=== PATIENT | female | born 1980 ===

== ENCOUNTER 2018-04-12 17:04 | Observation (INO) | payer OTHER ==
[2018-04-12 17:24] VITALS: BMI 45.1
[2018-04-12 17:36] LABS: BASO # 0.1 K/uL (0.0-0.2); BASO % 0.9 % (0.0-2.0); EOS # 0.1 K/uL (0.0-0.7); EOS % 1.3 % (0.0-4.0); LYMPH # 2.4 K/uL (1.0-4.3); LYMPH % 35.3 % (20.0-40.0); MEAN CORPUSCULAR HEMOGLOBIN 27.3 pg (27.0-31.0); MEAN CORPUSCULAR HGB CONC 32.5 g/dL (33.0-37.0); MEAN PLATELET VOLUME 7.7 fL (7.2-11.7); MONO # 0.3 K/uL (0.0-0.8); MONO % 4.2 % (0.0-10.0); NEUT % 58.3 % (50.0-75.0); NRBC % 0.1 % (0.0-2.0); RBC 4.76 Mil/uL (3.80-5.20); RED CELL DISTRIBUTION WIDTH 13.7 % (11.5-14.5); WHITE BLOOD COUNT 6.9 K/uL (4.8-10.8)
[2018-04-12 17:37] LABS: MEAN CELL VOLUME 83.9 fL (81.0-99.0)
[2018-04-12] MEDS ORDERED: Iodixanol 320 MG/ML 100 ML BOTTLE IV ONE (17:39)
--- NOTE | 2018-04-12 17:40 | CT ---
Date of service: 04/12/2018 PROCEDURE: CT HEAD WITHOUT CONTRAST. HISTORY: VISION LOSS/SLURRED SPEECH/HEADACHE COMPARISON: None available. TECHNIQUE: Axial computed tomography images were obtained through the head/brain without intravenous contrast. Radiation dose: Total exam DLP = 1112.36 mGy-cm. This CT exam was performed using one or more of the following dose reduction techniques: Automated exposure control, adjustment of the mA and/or kV according to patient size, and/or use of iterative reconstruction technique. FINDINGS: HEMORRHAGE: No intracranial hemorrhage. BRAIN: No mass effect or edema. No atrophy or chronic microvascular ischemic changes. VENTRICLES: Unremarkable. No hydrocephalus. CALVARIUM: Unremarkable. PARANASAL SINUSES: Unremarkable as visualized. No significant inflammatory changes. MASTOID AIR CELLS: Unremarkable as visualized. No inflammatory changes. OTHER FINDINGS: Trace left frontal soft tissue swelling. IMPRESSION: Trace left frontal soft tissue swelling. No calvarial fracture. No acute intracranial pathology or hemorrhage. Findings given to Dr. Jackson by Dr. Fagan at 5:35 p.m. on 04/12/2018.
[2018-04-12 17:43] LABS: PROTHROMBIN TIME 11.1 SECONDS (9.7-12.2)
[2018-04-12 17:46] LABS: ALB/GLOB RATIO 1.6 (1.0-2.1); ALBUMIN 4.7 g/dL (3.5-5.0); ALT/SGPT 16 U/L (9-52); AST/SGOT 17 U/L (14-36); BLOOD UREA NITROGEN 11 mg/dL (7-17); CALCIUM 8.6 mg/dl (8.6-10.4); GFR NON-AFRICAN AMERICAN > 60; HDL CHOLESTEROL 46 mg/dL (30-70)
--- NOTE | 2018-04-12 17:52 | C.PDOC ---
History Of Present Illness 37 y/o female presents to the ED complaining of a headache and right eye blurry vision onset today at 3pm. No known fevers or other complaints. 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 She otherwise denies any SOB, dizziness, palpitations, unilateral weakness, numbness, facial droop, or slurred speech. Time Seen by Provider: 04/12/18 17:22 Chief Complaint (Nursing): Headache History Per: Patient History/Exam Limitations: no limitations Onset/Duration Of Symptoms: Hrs Current Symptoms Are (Timing): Still Present Past Medical History Reviewed: Historical Data, Nursing Documentation, Vital Signs Vital Signs: Last Vital Signs Temp 98.7 F 04/12/18 17:21 Pulse 71 04/12/18 17:21 Resp 18 04/12/18 17:21 BP 155/92 H 04/12/18 17:21 Pulse Ox 98 04/12/18 17:21 - Medical History Other PMH: Mcintosh's Palsy Surgical History: Family History: States: Unknown Family Hx - Social History Hx Alcohol Use: Yes Hx Substance Use: No - Immunization History Hx Tetanus Toxoid Vaccination: No Hx Influenza Vaccination: No Hx Pneumococcal Vaccination: No Review Of Systems Except As Marked, All Systems Reviewed And Found Negative. Constitutional: Negative for: Fever Eyes: Positive for: Vision Change (blurry vision right eye) Cardiovascular: Negative for: Chest Pain, Palpitations Respiratory: Negative for: Shortness of Breath Gastrointestinal: Negative for: Nausea, Vomiting Neurological: Positive for: Headache. Negative for: Weakness, Numbness, Change in Speech, Altered Mental Status, Other (facial droop) Physical Exam - Physical Exam Appears: Non-toxic, No Acute Distress Skin: Warm, Dry Head: Atraumatic, Normacephalic Eye(s): bilateral: Normal Inspection, PERRL, EOMI Oral Mucosa: Moist Neck: Normal ROM, Supple Chest: Symmetrical Cardiovascular: Rhythm Regular, No Murmur Respiratory: Normal Breath Sounds, No Accessory Muscle Use Gastrointestinal/Abdominal: Soft, No Tenderness, No Distention Extremity: Bilateral: Atraumatic, Normal Color And Temperature, Normal ROM (x 4) Pulses: Left Dorsalis Pedis: Normal, Right Dorsalis Pedis: Normal Neurological/Psych: Oriented x3, Normal Speech, Normal Cognition, Normal Cranial Nerves (2-12 intact), No Cerebellar Signs, Normal Motor, Normal Sensation, Other (No pronator drift) Other Neurological Findings: No Facial Palsy Extremity: Right: No Drift, Left: No Drift, Upper: No Drift, Lower: No Drift ED Course And Treatment - Laboratory Results Result Diagrams: 04/12/18 17:29 04/12/18 17:29 Lab Results: PT 11.1 SECONDS (9.7-12.2) 04/12/18 17:29 INR 1.0 04/12/18 17:29 APTT 35 SECONDS (21-34) H 04/12/18 17:29 Total Bilirubin 0.3 mg/dL (0.2-1.3) 04/12/18 17:29 AST 17 U/L (14-36) 04/12/18 17: ALT 16 U/L (9-52) 04/12/18 17: Alkaline Phosphatase 55 U/L (38-126) 04/12/18 17:29 Total Protein 7.6 g/dL (6.3-8.3) 04/12/18 17: Albumin 4.7 g/dL (3.5-5.0) 04/12/18 17: Globulin 2.9 gm/dL (2.2-3.9) 04/12/18 17: Albumin/Globulin Ratio 1.6 (1.0-2.1) 04/12/18 17:29 O2 Sat by Pulse Oximetry: 98 (RA) Pulse Ox Interpretation: Normal - CT Scan/US CT Head Other Rad Studies (CT/US): Read By Radiologist, Radiology Report Reviewed CT/US Interpretation: Accession No. : [id number]. Patient Name / ID : DELFINA HAMMER / [id number]. Exam Date : 04/12/2018 17:28:50 ( Approved ). Study Comment : Sex / Age : F / 37Y. Creator : Trupti Zuniga. Dictator : Mynor Woo MD. Linotype Machinist Apprentice : Systems Trainer : Mynor Woo MD. Approver2 : Report Date : 04/12/2018 17:33:21. My Comment : . Date of service: 04/12/2018. PROCEDURE: CT HEAD WITHOUT CONTRAST. HISTORY: VISION LOSS/SLURRED SPEECH/HEADACHE. COMPARISON: None available. TECHNIQUE: Axial computed tomography images were obtained through the head/brain without intravenous contrast. Radiation dose: Total exam DLP = 1112.36 mGy-cm. This CT exam was performed using one or more of the following dose reduction techniques: Automated exposure control, adjustment of the mA and/or kV according to patient size, and/or use of iterative reconstruction technique. FINDINGS: HEMORRHAGE: No intracranial hemorrhage. BRAIN: No mass effect or edema. No atrophy or chronic microvascular ischemic changes. VENTRICLES: Unremarkable. No hydrocephalus. CALVARIUM: Unremarkable. PARANASAL SINUSES: Unremarkable as visualized. No significant inflammatory changes. MASTOID AIR CELLS: Unremarkable as visualized. No inflammatory changes. OTHER FINDINGS: Trace left frontal soft tissue swelling. IMPRESSION: Trace left frontal soft tissue swelling. No calvarial fracture. No acute intracranial pathology or hemorrhage. Findings given to Dr. Jackson by Dr. Fagan at 5:35 p.m. on 04/12/2018. CTA Head/Neck Other Rad Studies (CT/US): Read By Radiologist, Radiology Report Reviewed CT/US Interpretation: Accession No. : [id number]. Patient Name / ID : DELFINA HAMMER / [id number]. Exam Date : 04/12/2018 17:37:43 ( Approved ). Study Comment : Sex / Age : F / 37Y. Creator : Trupti Zuniga. Dictator : Karl Matthew MD. Linotype Machinist Apprentice : Systems Trainer : Karl Matthew MD. Ap prover2 : Report Date : 04/12/2018 17:53:22. My Comment : . Date of service: 04/12/2018. PROCEDURE: CT Angiography of the Brain. HISTORY: right eye blurred vision. COMPARISON: None available. TECHNIQUE: CT angiography of the intracranial arteries was performed. Coronal and sagittal maximum intensity projection reformated images were generated. Radiation dose: Total exam DLP = 547.08 mGy- cm. This CT exam was performed using one or more of the following dose reduction techniques: Automated exposure control, adjustment of the mA and/or kV according to patient size, and/or use of iterative reconstruction technique. FINDINGS: RIGHT CAROTID ARTERIES: Common Carotid Artery: Normal. Carotid Bifurcation: Normal. Internal Carotid Artery:The right internal carotid terminus is small in size. External Carotid Artery (proximal branches): Normal. LEFT CAROTID ARTERIES: Common Carotid Artery: Left common carotid artery is small in size P. Carotid Bifurcation: The left carotid bifurcation is also small in size. Internal Carotid Artery:Left internal carotid artery is not visualized likely occluded from its origin. External Carotid Artery (proximal branches): Normal. VERTEBRAL ARTERIES: Right Vertebral Artery: Normal. Left Vertebral Artery: Normal. INTERNAL CEREBRAL ARTERIES: Left internal carotid artery is not visualized. The right internal carotid terminus is small in size. ANTERIOR CEREBRAL ARTERIES: Both anterior cerebral arteries are small in size with blood supply for both anterior cerebral artery comes from right anterior communicated artery. The left A1 is not visualized. MIDDLE CEREBRAL ARTERIES: There is reconstitution of the left middle cerebral artery via left posterior communicated artery. The M1 and M2 segments of the left middle cerebral artery are small in size. The M1 and M2 segments of the right middle cerebral artery are also small in size. POSTERIOR CIRCULATION: Basilar Artery: Unremarkable. Distal Vertebral Arteries: Unremarkable. Posterior Cerebral Arteries: Unremarkable. Posterior Inferior Cerebellar Arteries: Unremarkable. ANEURYSM/ VASCULAR MALFORMATIONS: None. OTHER FINDINGS: None. IMPRESSION: The left internal carotid artery is not visualized from its origin ( complete occlusion of the left internal carotid artery ). Small size right internal carotid artery terminus. Reconstitution of small size left middle cerebral artery from relatively prominent size left posterior communicated artery. The left A1 is not visualized. The M1 and M2 segments of the right middle cerebral arteries are small in size. The above findings were reported to and discussed with referring emergency room physician Dr. Jackson on 04/12/2018 at 6:05 p.m. NIHSS Stroke Scale - Date/Time Evaluation Performed Date Performed: 04/12/18 Time Performed: 17:21 When Was NIHSS Performed: Baseline - How Severe is the [place] Level of Consciousness: 0=Alert LOC to Questions: 0=Both comments correct LOC to commands: 0=Obeys both correctly Best Gaze: 0=Normal Visual: 0=No visual loss Facial: 0=Normal Motor Arm - Left: 0=No drift Motor Arm - Right: 0=No drift Motor Leg - Left: 0=No drift Motor Leg - Right: 0=No drift Limb Ataxia: 0=Absent Sensory: 0=Normal Best Language: 0=No aphasia Dysarthia: 0=Normal articulation Extinction & Inattention (Neglect): 0=Normal, no object Score: 0 rTPA Inclusion/Exclusion - Refusal of Treatment Patient Refused Treatment: No - Inclusion Criteria for Altepase Patient is 18 years or Older: Yes The Clinical Diagnosis of Ischemic Stroke That is Causing a Potentially Disabling Neurological Deficit: No Time of Onset is Well Established to be Less Than 270 Minute Before Treatment Would Begin: No Risk/Benefit Discussed With Patient/Family Member Present: No Medical Decision Making Medical Decision Makin:21 Code Stroke initiated on arrival. Plan: --Labs --CT Head CT reviewed. Findings discussed with Dr. Lozano, who requests CTA. 17:[address] Lozano, recommends 324 mg PO aspirin and 75 mg PO plavix Informed that viz AI software is reading + vessel occlusion. Discussed imaging with neurointerventionalist, who reports imaging is negative. 18:16 Received call from radiologist, CTA read as (+) left internal carotid occluded. 18:[address] Ga, discussed findings. She requests admission under hospitalist service. Disposition - Disposition - Scribe Statement The provider has reviewed the documentation as recorded by the Víctor Alcantar Provider Attestation: All medical record entries made by the Bonyibjessica were at my direction and personally dictated by me. I have reviewed the chart and agree that the record accurately reflects my personal performance of the history, physical exam, medical decision making, and the department course for this patient. I have also personally directed, reviewed, and agree with the discharge instructions and disposition.
[2018-04-12 17:57] LABS: LDL CHOLESTEROL 113 mg/dL (0-129)
[2018-04-12 18:06] LABS: CK-MB 0.27 ng/mL (0.0-3.38)
--- NOTE | 2018-04-12 18:30 | CT ---
Date of service: 04/12/2018 PROCEDURE: CT Angiography of the Brain. HISTORY: right eye blurred vision COMPARISON: None available. TECHNIQUE: CT angiography of the intracranial arteries was performed. Coronal and sagittal maximum intensity projection reformated images were generated. Radiation dose: Total exam DLP = 547.08 mGy-cm. This CT exam was performed using one or more of the following dose reduction techniques: Automated exposure control, adjustment of the mA and/or kV according to patient size, and/or use of iterative reconstruction technique. FINDINGS: RIGHT CAROTID ARTERIES: Common Carotid Artery: Normal. Carotid Bifurcation: Normal. Internal Carotid Artery:The right internal carotid terminus is small in size. External Carotid Artery (proximal branches): Normal. LEFT CAROTID ARTERIES: Common Carotid Artery: Left common carotid artery is small in size P Carotid Bifurcation: The left carotid bifurcation is also small in size. Internal Carotid Artery:Left internal carotid artery is not visualized likely occluded from its origin. External Carotid Artery (proximal branches): Normal. VERTEBRAL ARTERIES: Right Vertebral Artery: Normal. Left Vertebral Artery: Normal. INTERNAL CEREBRAL ARTERIES: Left internal carotid artery is not visualized. The right internal carotid terminus is small in size. ANTERIOR CEREBRAL ARTERIES: Both anterior cerebral arteries are small in size with blood supply for both anterior cerebral artery comes from right anterior communicated artery. The left A1 is not visualized MIDDLE CEREBRAL ARTERIES: There is reconstitution of the left middle cerebral artery via left posterior communicated artery. The M1 and M2 segments of the left middle cerebral artery are small in size. The M1 and M2 segments of the right middle cerebral artery are also small in size. POSTERIOR CIRCULATION: Basilar Artery: Unremarkable. Distal Vertebral Arteries: Unremarkable. Posterior Cerebral Arteries: Unremarkable. Posterior Inferior Cerebellar Arteries: Unremarkable. ANEURYSM/ VASCULAR MALFORMATIONS: None. OTHER FINDINGS: None. IMPRESSION: The left internal carotid artery is not visualized from its origin ( complete occlusion of the left internal carotid artery ). Small size right internal carotid artery terminus. Reconstitution of small size left middle cerebral artery from relatively prominent size left posterior communicated artery. The left A1 is not visualized. The M1 and M2 segments of the right middle cerebral arteries are small in size. The above findings were reported to and discussed with referring emergency room physician Dr. Jackson on 04/12/2018 at 6:05 p.m.
--- NOTE | 2018-04-12 20:50 | CP.PCM.HP ---
<Tierra Quezada - Last Filed: 04/13/18 00:56> History of Present Illness - History of Present Illness History of Present Illness: CC: peripheral vision loss and headache Patient is a 37 year old female with pmhx of Mcintosh's Palsy who presents to the ED with complaints of peripheral vision loss and right sided headache. Pt reports acute peripheral vision loss, greater on right but unsure if bilateral, while patient was working this afternoon at computer. Pt reports she was unable to see numbers to the side, and had to turn her head to do so. She reports she was on the phone at time of onset, and a coworker noted her words did not make sense. Pt then began to experience a severe right sided retro-orbital headache /. Pt then went to eat, but symptoms persisted. Other coworkers noted her to be "normal", with no speech, balance, ambulating deficit. Pt took Ibuprofen 600mg and an Aspirin with no relief of symptoms, and was advised by her employer, a [employer], to come to the ED for further evaluation. Pt reports history of tension type headaches, lesser in severity. Pt denies weakness, loss of sensation, dizziness, chest pain, SOB, nausea, difficulty ambulating during e vent. 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 absent: Fever - EENT Eyes: Change in Vision, Loss of Peripheral Vision, Tunnel Vision Ears: absent: Tinnitus, Disequilibrium Nose/Mouth/Throat: absent: Odynophagia - Cardiovascular Cardiovascular: absent: Chest Pain, Claudication, Palpitations - Respiratory Respiratory: absent: Dyspnea, Chest Congestion - Gastrointestinal Gastrointestinal: absent: Abdominal Pain, Nausea - Genitourinary Genitourinary: absent: Dysuria - Reproductive: Female Reproductive:Female: Currently Menstual, Heavy Menses (currently) - Musculoskeletal Musculoskeletal: absent: Neck Pain - Neurological Neurological: Loss of Vision (peripheral). absent: Abnormal Hearing, Confusion, Disequilibrium, Dizziness, Weakness - Psychiatric Psychiatric: Anxiety Past Patient History - Past Social History Smoking Status: Never Smoked - NEUROLOGICAL Other/Comment: MCINTOSH'S PALSY - PSYCHIATRIC Hx Substance Use: No - SURGICAL HISTORY Hx Section: Yes Hx Tubal Ligation: Yes - ANESTHESIA Hx Anesthesia: Yes Hx Anesthesia Reactions: No Hx Malignant Hyperthermia: No Meds Allergies/Adverse Reactions: Allergies Allergy/AdvReac Type Severity Reaction Status Date / Time No Known Allergies Allergy Verified 04/12/18 17:27 Physical Exam - Constitutional Appears: Non-toxic, No Acute Distress - Head Exam Head Exam: ATRAUMATIC, NORMAL INSPECTION, NORMOCEPHALIC - Eye Exam Eye Exam: EOMI, Normal appearance. absent: Conjunctival injection, Nystagmus, Periorbital swelling Pupil Exam: PERRL - ENT Exam ENT Exam: Mucous Membranes Moist, Normal Exam - Neck Exam Neck exam: Positive for: Normal Inspection. Negative for: Lymphadenopathy - Respiratory Exam Respiratory Exam: Clear to Auscultation Bilateral, NORMAL BREATHING PATTERN - Cardiovascular Exam Cardiovascular Exam: Tachycardia, REGULAR RHYTHM - GI/Abdominal Exam GI & Abdominal Exam: Normal Bowel Sounds, Soft. absent: Tenderness - Extremities Exam Extremities exam: Positive for: normal inspection. Negative for: calf tenderness, pedal edema - Neurological Exam Neurological exam: Alert, Oriented x3 - Expanded Neurological Exam Expanded Cranial nerves: EOM's Intact: Normal, Facial Sensation: Normal, Nystagmus: Normal, Tongue Deviation: Normal Cerebellar Function: Finger to Nose: Normal, Heel to [place]: Normal, Romberg: Normal Neuro motor strength exam: Left Upper Extremity: 5, Right Upper Extremity: 5, Left Lower Extremity: 5, Right Lower Extremity: 5 - Psychiatric Exam Psychiatric exam: Anxious - Skin Skin Exam: Dry, Intact, Normal Color, Warm Results - Vital Signs Recent Vital Signs: Last Vital Signs Temp 98.4 F 04/12/18 19:04 Pulse 74 04/12/18 20:39 Resp 14 04/12/18 19:04 BP 143/90 04/12/18 20:39 Pulse Ox 97 04/12/18 20:39 - Labs Result Diagrams: 04/12/18 17:29 04/12/18 17:29 Labs: Laboratory Results - last 24 hr 04/12/18 04/12/18 04/12/18 17:20 17:29 17:29 WBC 6.9 RBC 4.76 Hgb 13.0 Hct 39.9 MCV 83.9 D MCH 27.3 MCHC 32.5 L RDW 13.7 Plt Count 296 MPV 7.7 Neut % (Auto) 58.3 Lymph % (Auto) 35.3 [place] % (Auto) 4.2 Eos % (Auto) 1.3 Baso % (Auto) 0.9 Neut # (Auto) 4.0 Lymph # (Auto) 2.4 [place] # (Auto) 0.3 Eos # (Auto) 0.1 Baso # (Auto) 0.1 PT 11.1 INR 1.0 APTT 35 H Sodium Potassium Chloride Carbon Dioxide Anion Gap BUN Creatinine Est GFR ( Amer) Est GFR (Non-Af Amer) POC Glucose (mg/dL) 172 H Random Glucose Calcium Phosphorus Magnesium Total Bilirubin AST ALT Alkaline Phosphatase Total Creatine Kinase CK-MB (Mass) Troponin I Total Protein Albumin Globulin Albumin/Globulin Ratio Triglycerides Cholesterol LDL Cholesterol Direct HDL Cholesterol Blood Type Antibody Screen 04/12/18 04/12/18 04/12/18 17:29 17:33 17:40 WBC RBC Hgb Hct MCV MCH MCHC RDW Plt Count MPV Neut % (Auto) Lymph % (Auto) [place] % (Auto) Eos % (Auto) Baso % (Auto) Neut # (Auto) Lymph # (Auto) [place] # (Auto) Eos # (Auto) Baso # (Auto) PT INR APTT Sodium 137 Potassium 3.4 L Chloride 100 Carbon Dioxide 29 Anion Gap 12 BUN 11 Creatinine 0.9 Est GFR ( Amer) > 60 Est GFR (Non-Af Amer) > 60 POC Glucose (mg/dL) Random Glucose 137 H D Calcium 8.6 Phosphorus 3.3 Magnesium 2.0 Total Bilirubin 0.3 AST 17 ALT 16 Alkaline Phosphatase 55 Total Creatine Kinase 78 CK-MB (Mass) 0.27 Troponin I < 0.0120 Total Protein 7.6 Albumin 4.7 Globulin 2.9 Albumin/Globulin Ratio 1.6 Triglycerides 121 Cholesterol 163 LDL Cholesterol Direct 113 HDL Cholesterol 46 Blood Type O POSITIVE Antibody Screen Negative Assessment & Plan - Assessment and Plan (Free Text) Assessment: 37 year old female with pmhx of Mcintosh's Palsy admitted for evaluation and treatment of acute transient peripheral vision loss and severe headache Plan: R/O CVA -code stroke called in ED upon arrival, NIHSS 0 -symptoms currently resolved s/p ASA 325 and Plavix 75 in ED -CT Head:Trace left frontal soft tissue swelling. No calvarial fracture. No acute intracranial pathology or hemorrhage. -CTA Head/Neck: The left internal carotid artery is not visualized from its origin ( complete occlusion of the left internal carotid artery ). Small size right internal carotid artery terminus. Reconstitution of small size left middle cerebral artery from relatively prominent size left posterior communicated artery. The left A1 is not visualized. The M1 and M2 segments of the right middle cerebral arteries are small in size. -plan for MRI brain to r/o any evolving pathology -telemetry monitoring -neuro checks Q1, vitals Q4 -ASA 81mg qd -Neurology consult, Dr. Lozano Ppx -VTE ppx: lovenox, SCDs -GI ppx: not indicated Consider other etiology of symptoms including severe migraine, retinal thrombus, arterial spasm Discussed with Dr. Aguero -Tierra Quezada, PGY-1 <Yves Aguero P - Last Filed: 04/13/18 07:48> Results - Vital Signs Recent Vital Signs: Last Vital Signs Temp 98.1 F 04/13/18 05:00 Pulse 69 04/13/18 05:00 Resp 18 04/13/18 05:00 BP 106/72 04/13/18 05:00 Pulse Ox 97 04/13/18 05:00 - Labs Result Diagrams: 04/13/18 07:06 04/12/18 17:29 Labs: Laboratory Results - last 24 hr 04/12/18 04/12/18 04/12/18 17:20 17:29 17:29 WBC 6.9 RBC 4.76 Hgb 13.0 Hct 39.9 MCV 83.9 D MCH 27.3 MCHC 32.5 L RDW 13.7 Plt Count 296 MPV 7.7 Neut % (Auto) 58.3 Lymph % (Auto) 35.3 [place] % (Auto) 4.2 Eos % (Auto) 1.3 Baso % (Auto) 0.9 Neut # (Auto) 4.0 Lymph # (Auto) 2.4 [place] # (Auto) 0.3 Eos # (Auto) 0.1 Baso # (Auto) 0.1 PT 11.1 INR 1.0 APTT 35 H Sodium Potassium Chloride Carbon Dioxide Anion Gap BUN Creatinine Est GFR ( Amer) Est GFR (Non-Af Amer) POC Glucose (mg/dL) 172 H Random Glucose Calcium Phosphorus Magnesium Total Bilirubin AST ALT Alkaline Phosphatase Total Creatine Kinase CK-MB (Mass) Troponin I Total Protein Albumin Globulin Albumin/Globulin Ratio Triglycerides Cholesterol LDL Cholesterol Direct HDL Cholesterol Urine Color Urine Clarity Urine pH Ur Specific [place] Urine Protein Urine Glucose (UA) Urine Ketones Urine Blood Urine Nitrate Urine Bilirubin Urine Urobilinogen Ur Leukocyte Esterase Urine WBC (Auto) Urine RBC (Auto) Blood Type Antibody Screen 04/12/18 04/12/18 04/12/18 17:29 17:33 17:40 WBC RBC Hgb Hct MCV MCH MCHC RDW Plt Count MPV Neut % (Auto) Lymph % (Auto) [place] % (Auto) Eos % (Auto) Baso % (Auto) Neut # (Auto) Lymph # (Auto) [place] # (Auto) Eos # (Auto) Baso # (Auto) PT INR APTT Sodium 137 Potassium 3.4 L Chloride 100 Carbon Dioxide 29 Anion Gap 12 BUN 11 Creatinine 0.9 Est GFR ( Amer) > 60 Est GFR (Non-Af Amer) > 60 POC Glucose (mg/dL) Random Glucose 137 H D Calcium 8.6 Phosphorus 3.3 Magnesium 2.0 Total Bilirubin 0.3 AST 17 ALT 16 Alkaline Phosphatase 55 Total Creatine Kinase 78 CK-MB (Mass) 0.27 Troponin I < 0.0120 Total Protein 7.6 Albumin 4.7 Globulin 2.9 Albumin/Globulin Ratio 1.6 Triglycerides 121 Cholesterol 163 LDL Cholesterol Direct 113 HDL Cholesterol 46 Urine Color Urine Clarity Urine pH Ur Specific [place] Urine Protein Urine Glucose (UA) Urine Ketones Urine Blood Urine Nitrate Urine Bilirubin Urine Urobilinogen Ur Leukocyte Esterase Urine WBC (Auto) Urine RBC (Auto) Blood Type O POSITIVE Antibody Screen Negative 04/12/18 04/13/18 22:17 07:06 WBC 5.2 RBC 4.30 Hgb 12.1 Hct 36.2 MCV 84.2 MCH 28.2 MCHC 33.5 RDW 13.9 Plt Count 266 MPV 7.8 Neut % (Auto) 61.6 Lymph % (Auto) 29.3 Barry % (Auto) 6.3 Eos % (Auto) 2.0 Baso % (Auto) 0.8 Neut # (Auto) 3.2 Lymph # (Auto) 1.5 Barry # (Auto) 0.3 Eos # (Auto) 0.1 Baso # (Auto) 0.0 PT INR APTT Sodium Potassium Chloride Carbon Dioxide Anion Gap BUN Creatinine Est GFR ( Amer) Est GFR (Non-Af Amer) POC Glucose (mg/dL) Random Glucose Calcium Phosphorus Magnesium Total Bilirubin AST ALT Alkaline Phosphatase Total Creatine Kinase CK-MB (Mass) Troponin I Total Protein Albumin Globulin Albumin/Globulin Ratio Triglycerides Cholesterol LDL Cholesterol Direct HDL Cholesterol Urine Color Straw Urine Clarity Clear Urine pH 6.0 Ur Specific [place] 1.012 Urine Protein Negative Urine Glucose (UA) Normal Urine Ketones Negative Urine Blood 2+ H Urine Nitrate Negative Urine Bilirubin Negative Urine Urobilinogen Normal Ur Leukocyte Esterase Neg Urine WBC (Auto) 1 Urine RBC (Auto) 10 H Blood Type Antibody Screen Attending/Attestation - Attestation I have personally seen and examined this patient.: Yes I have fully participated in the care of the patient.: Yes I have reviewed all pertinent clinical information: Yes Notes (Text): 04/13/18 07:39 Clinical history of temporary loss of lateral vision b/l, with right temporo- frontal headache, 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 H/o headaches but not similar to this one. Total resolution of symptoms, and no signs on exam of any deficit. Patient is not the best narrator and signs and symptoms completely resolved which reduces the reliability of assessment. Suspect atypical migraine, ? temp vassospasm, in central optic chiasma. Plan Observe in tele GI/DVT prophylaxis ASA MRI brain Neurology has been consulted. See orders for detail.
[2018-04-12] MEDS: Enoxaparin 40 mg Syringe SC SCH (22:06)
[2018-04-12 22:22] LABS: URINE BILIRUBIN NEGATIVE (NEGATIVE); URINE BLOOD 2+ (NEGATIVE); URINE CLARITY Clear (Clear); URINE COLOR Straw (YELLOW); URINE GLUCOSE (UA) NORMAL (Normal); URINE LEUKOCYTE ESTERASE NEG Leu/uL (Negative); URINE PROTEIN NEGATIVE (NEGATIVE); URINE UROBILINOGEN NORMAL mg/dL (0.2-1.0)
[2018-04-13 01:03] VITALS: O2SAT 97
[2018-04-13 07:21] LABS: BASO % 0.8 % (0.0-2.0); EOS # 0.1 K/uL (0.0-0.7); HEMOGLOBIN 12.1 g/dL (11.0-16.0); LYMPH # 1.5 K/uL (1.0-4.3); LYMPH % 29.3 % (20.0-40.0); MEAN CELL VOLUME 84.2 fL (81.0-99.0); MEAN CORPUSCULAR HEMOGLOBIN 28.2 pg (27.0-31.0); MEAN CORPUSCULAR HGB CONC 33.5 g/dL (33.0-37.0); MEAN PLATELET VOLUME 7.8 fL (7.2-11.7); MONO # 0.3 K/uL (0.0-0.8); MONO % 6.3 % (0.0-10.0); NEUT # 3.2 K/uL (1.8-7.0); NEUT % 61.6 % (50.0-75.0); NRBC % 0.1 % (0.0-2.0); RBC 4.3 Mil/uL (3.80-5.20); RED CELL DISTRIBUTION WIDTH 13.9 % (11.5-14.5); WHITE BLOOD COUNT 5.2 K/uL (4.8-10.8)
[2018-04-13 08:01] LABS: ALB/GLOB RATIO 1.7 (1.0-2.1); ALBUMIN 4.1 g/dL (3.5-5.0); ALT/SGPT 22 U/L (9-52); AST/SGOT 17 U/L (14-36); BLOOD UREA NITROGEN 9 mg/dL (7-17); CALCIUM 8.3 mg/dl (8.6-10.4); GFR NON-AFRICAN AMERICAN > 60
[2018-04-13 08:55] VITALS: BP 104/62; RESP 20; TEMP 98
[2018-04-13] MEDS: Enoxaparin 40 mg Syringe SC SCH (10:37)
--- NOTE | 2018-04-13 12:55 | MRI ---
Date of service: 04/13/2018 PROCEDURE: MRI BRAIN WITHOUT CONTRAST HISTORY: Transient visual loss/headache COMPARISON: Comparison made with prior CT scan and CTA brain both dated 04/12 2018. The the the TECHNIQUE: Multiplanar, multisequence MR images of the brain were obtained without intravenous contrast enhancement. FINDINGS: HEMORRHAGE: No acute parenchymal, subarachnoid or extra-axial hemorrhage. No evidence of hemosiderin deposition is identified on gradient echo weighted sequence DWI: No evidence of an acute or early subacute infarction seen on diffusion imaging BRAIN PARENCHYMA: No mass effect or edema. No atrophy or chronic microvascular ischemic changes. VENTRICLES: Unremarkable. No hydrocephalus. CRANIUM: Unremarkable. ORBITS: Grossly unremarkable. PARANASAL SINUSES/MASTOIDS: Clear VASCULAR SYSTEM: The left cavernous carotid artery flow void is not visualized... Clinical correlation recommended. OTHER FINDINGS: None. IMPRESSION: The left cavernous carotid artery flow-void is not visualized is not visualized.. Please refer to prior CTA of the brain 04/12/2018 and corresponding report for additional details. No acute intracranial hemorrhage...
--- NOTE | 2018-04-13 14:28 | CP.PCM.CON ---
History of Present Illness - History of Present Illness History of Present Illness: Neurology consult called by , ER 37 yr old woman who came in as a code stroke last night, after having very uncomfortable feeling of viual yang constricting while she was at work. 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 She came to Er, and code stroke was called bec ause her symptoms resolved. 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 Interventional team was called and they did not feel intervention or thrombectomy was indicated at this time. She was admitted and she had no recurrence of symptoms. MRI BRain was done and shown to be normal. Past Patient History - Past Social History Smoking Status: Never Smoked - NEUROLOGICAL Other/Comment: FERNANDES'S PALSY - PSYCHIATRIC Hx Substance Use: No - SURGICAL HISTORY Hx Section: Yes Hx Tubal Ligation: Yes - ANESTHESIA Hx Anesthesia: Yes Hx Anesthesia Reactions: No Hx Malignant Hyperthermia: No Meds Home Medications: Home Medication List Medication Instructions Recorded Confirmed Type RX: Aspirin 325 mg PO DAILY #60 tab 04/13/18 Rx Allergies/Adverse Reactions: Allergies Allergy/AdvReac Type Severity Reaction Status Date / Time No Known Allergies Allergy Verified 04/12/18 17:27 - Medications Medications: Current Medications Aspirin (Aspirin Chewable) 81 mg PO DAILY [facility] Last Admin: 04/13/18 10:38 Dose: 81 mg Enoxaparin Sodium (Lovenox) 40 mg SC DAILY [facility] Last Admin: 04/13/18 10:37 Dose: 40 mg Results - Vital Signs Recent Vital Signs: Last Vital Signs Temp 98 F 04/13/18 07:00 Pulse 62 04/13/18 07:46 Resp 20 04/13/18 07:00 BP 104/62 04/13/18 07:00 Pulse Ox 97 04/13/18 07:00 - Labs Result Diagrams: 04/13/18 07:06 04/13/18 07:06 Labs: Laboratory Results - last 24 hr 04/12/18 04/12/18 04/12/18 17:20 17:29 17:29 WBC 6.9 RBC 4.76 Hgb 13.0 Hct 39.9 MCV 83.9 D MCH 27.3 MCHC 32.5 L RDW 13.7 Plt Count 296 MPV 7.7 Neut % (Auto) 58.3 Lymph % (Auto) 35.3 [place] % (Auto) 4.2 Eos % (Auto) 1.3 Baso % (Auto) 0.9 Neut # (Auto) 4.0 Lymph # (Auto) 2.4 [place] # (Auto) 0.3 Eos # (Auto) 0.1 Baso # (Auto) 0.1 PT 11.1 INR 1.0 APTT 35 H Sodium Potassium Chloride Carbon Dioxide Anion Gap BUN Creatinine Est GFR ( Amer) Est GFR (Non-Af Amer) POC Glucose (mg/dL) 172 H Random Glucose Calcium Phosphorus Magnesium Total Bilirubin AST ALT Alkaline Phosphatase Total Creatine Kinase CK-MB (Mass) Troponin I Total Protein Albumin Globulin Albumin/Globulin Ratio Triglycerides Cholesterol LDL Cholesterol Direct HDL Cholesterol TSH 3rd Generation Urine Color Urine Clarity Urine pH Ur Specific [place] Urine Protein Urine Glucose (UA) Urine Ketones Urine Blood Urine Nitrate Urine Bilirubin Urine Urobilinogen Ur Leukocyte Esterase Urine WBC (Auto) Urine RBC (Auto) Blood Type Antibody Screen 04/12/18 04/12/18 04/12/18 17:29 17:33 17:40 WBC RBC Hgb Hct MCV MCH MCHC RDW Plt Count MPV Neut % (Auto) Lymph % (Auto) [place] % (Auto) Eos % (Auto) Baso % (Auto) Neut # (Auto) Lymph # (Auto) [place] # (Auto) Eos # (Auto) Baso # (Auto) PT INR APTT Sodium 137 Potassium 3.4 L Chloride 100 Carbon Dioxide 29 Anion Gap 12 BUN 11 Creatinine 0.9 Est GFR ( Amer) > 60 Est GFR (Non-Af Amer) > 60 POC Glucose (mg/dL) Random Glucose 137 H D Calcium 8.6 Phosphorus 3.3 Magnesium 2.0 Total Bilirubin 0.3 AST 17 ALT 16 Alkaline Phosphatase 55 Total Creatine Kinase 78 CK-MB (Mass) 0.27 Troponin I < 0.0120 Total Protein 7.6 Albumin 4.7 Globulin 2.9 Albumin/Globulin Ratio 1.6 Triglycerides 121 Cholesterol 163 LDL Cholesterol Direct 113 HDL Cholesterol 46 TSH 3rd Generation Urine Color Urine Clarity Urine pH Ur Specific [place] Urine Protein Urine Glucose (UA) Urine Ketones Urine Blood Urine Nitrate Urine Bilirubin Urine Urobilinogen Ur Leukocyte Esterase Urine WBC (Auto) Urine RBC (Auto) Blood Type O POSITIVE Antibody Screen Negative 04/12/18 04/13/18 04/13/18 22:17 07:06 07:06 WBC 5.2 RBC 4.30 Hgb 12.1 Hct 36.2 MCV 84.2 MCH 28.2 MCHC 33.5 RDW 13.9 Plt Count 266 MPV 7.8 Neut % (Auto) 61.6 Lymph % (Auto) 29.3 [place] % (Auto) 6.3 Eos % (Auto) 2.0 Baso % (Auto) 0.8 Neut # (Auto) 3.2 Lymph # (Auto) 1.5 [place] # (Auto) 0.3 Eos # (Auto) 0.1 Baso # (Auto) 0.0 PT INR APTT Sodium 138 Potassium 3.8 Chloride 103 Carbon Dioxide 28 Anion Gap 11 BUN 9 Creatinine 0.7 Est GFR ( Amer) > 60 Est GFR (Non-Af Amer) > 60 POC Glucose (mg/dL) Random Glucose 103 D Calcium 8.3 L Phosphorus Magnesium Total Bilirubin 0.4 AST 17 ALT 22 Alkaline Phosphatase 48 Total Creatine Kinase CK-MB (Mass) Troponin I Total Protein 6.5 Albumin 4.1 Globulin 2.4 Albumin/Globulin Ratio 1.7 Triglycerides Cholesterol LDL Cholesterol Direct HDL Cholesterol TSH 3rd Generation 2.43 Urine Color Straw Urine Clarity Clear Urine pH 6.0 Ur Specific [place] 1.012 Urine Protein Negative Urine Glucose (UA) Normal Urine Ketones Negative Urine Blood 2+ H Urine Nitrate Negative Urine Bilirubin Negative Urine Urobilinogen Normal Ur Leukocyte Esterase Neg Urine WBC (Auto) 1 Urine RBC (Auto) 10 H Blood Type Antibody Screen
[2018-04-13 14:53] VITALS: PULSE 86
--- NOTE | 2018-04-13 20:18 | CP.PCM.DIS ---
Provider - Provider Date of Admission: 04/12/18 19:37 Attending physician: Yves Aguero MD Consults: 04/12/18 22:34 Neurology Consult Routine Comment: Consulting Provider: Rina Lozano Consulting Physician: Rina Lozano Reason for Consult: s/p code stroke; transient vision loss/headache Time Spent in preparation of Discharge (in minutes): 40 Diagnosis - Discharge Diagnosis (1) Headache Status: Acute Hospital Course - Lab Results Lab Results: Most Recent Lab Values WBC 5.2 K/uL (4.8-10.8) 04/13/18 07:06 RBC 4.30 Mil/uL (3.80-5.20) 04/13/18 07:06 Hgb 12.1 g/dL (11.0-16.0) 04/13/18 07:06 Hct 36.2 % (34.0-47.0) 04/13/18 07:06 MCV 84.2 fL (81.0-99.0) 04/13/18 07:06 MCH 28.2 pg (27.0-31.0) 04/13/18 07:06 MCHC 33.5 g/dL (33.0-37.0) 04/13/18 07:06 RDW 13.9 % (11.5-14.5) 04/13/18 07:06 Plt Count 266 K/uL (130-400) 04/13/18 07:06 MPV 7.8 fL (7.2-11.7) 04/13/18 07:06 Neut % (Auto) 61.6 % (50.0-75.0) 04/13/18 07:06 Lymph % (Auto) 29.3 % (20.0-40.0) 04/13/18 07:06 [place] % (Auto) 6.3 % (0.0-10.0) 04/13/18 07:06 Eos % (Auto) 2.0 % (0.0-4.0) 04/13/18 07:06 Baso % (Auto) 0.8 % (0.0-2.0) 04/13/18 07:06 Neut # (Auto) 3.2 K/uL (1.8-7.0) 04/13/18 07:06 Lymph # (Auto) 1.5 K/uL (1.0-4.3) 04/13/18 07:06 [place] # (Auto) 0.3 K/uL (0.0-0.8) 04/13/18 07:06 Eos # (Auto) 0.1 K/uL (0.0-0.7) 04/13/18 07:06 Baso # (Auto) 0.0 K/uL (0.0-0.2) 04/13/18 07:06 PT 11.1 SECONDS (9.7-12.2) 04/12/18 17:29 INR 1.0 04/12/18 17: APTT 35 SECONDS (21-34) H 04/12/18 17:29 Sodium 138 mmol/L (132-148) 04/13/18 07:06 Potassium 3.8 mmol/L (3.6-5.2) 04/13/18 07:06 Chloride 103 mmol/L (98-107) 04/13/18 07:06 Carbon Dioxide 28 mmol/L (22-30) 04/13/18 07:06 Anion Gap 11 (10-20) 04/13/18 07:06 BUN 9 mg/dL (7-17) 04/13/18 07:06 Creatinine 0.7 mg/dL (0.7-1.2) 04/13/18 07:06 Est GFR ( Amer) > 60 04/13/18 07:06 Est GFR (Non-Af Amer) > 60 04/13/18 07:06 POC Glucose (mg/dL) 172 mg/dL (65-110) H 04/12/18 17:20 Random Glucose 103 mg/dL (65-105) D 04/13/18 07:06 Calcium 8.3 mg/dl (8.6-10.4) L 04/13/18 07:06 Phosphorus 3.3 mg/dL (2.5-4.5) 04/12/18 17:29 Magnesium 2.0 mg/dL (1.6-2.3) 04/12/18 17:29 Total Bilirubin 0.4 mg/dL (0.2-1.3) 04/13/18 07:06 AST 17 U/L (14-36) 04/13/18 07:06 ALT 22 U/L (9-52) 04/13/18 07:06 Alkaline Phosphatase 48 U/L (38-126) 04/13/18 07:06 Total Creatine Kinase 78 U/L (30-135) 04/12/18 17:40 CK-MB (Mass) 0.27 ng/mL (0.0-3.38) 04/12/18 17:40 Troponin I < 0.0120 ng/mL (0.00-0.120) 04/12/18 17:40 Total Protein 6.5 g/dL (6.3-8.3) 04/13/18 07:06 Albumin 4.1 g/dL (3.5-5.0) 04/13/18 07:06 Globulin 2.4 gm/dL (2.2-3.9) 04/13/18 07:06 Albumin/Globulin Ratio 1.7 (1.0-2.1) 04/13/18 07:06 Triglycerides 121 mg/dL (0-149) 04/12/18 17:29 Cholesterol 163 mg/dL (0-199) 04/12/18 17:29 LDL Cholesterol Direct 113 mg/dL (0-129) 04/12/18 17:29 HDL Cholesterol 46 mg/dL (30-70) 04/12/18 17:29 TSH 3rd Generation 2.43 mIU/L (0.46-4.68) 04/13/18 07:06 Urine Color Straw (YELLOW) 04/12/18 22:17 Urine Clarity Clear (Clear) 04/12/18 22:17 Urine pH 6.0 (5.0-8.0) 04/12/18 22:17 Ur Specific [place] 1.012 (1.003-1.030) 04/12/18 22:17 Urine Protein Negative mg/dL (NEGATIVE) 04/12/18 22:17 Urine Glucose (UA) Normal mg/dL (Normal) 04/12/18 22:17 Urine Ketones Negative mg/dL (NEGATIVE) 04/12/18 22:17 Urine Blood 2+ (NEGATIVE) H 04/12/18 22:17 Urine Nitrate Negative (NEGATIVE) 04/12/18 22:17 Urine Bilirubin Negative (NEGATIVE) 04/12/18 22:17 Urine Urobilinogen Normal mg/dL (0.2-1.0) 04/12/18 22:17 Ur Leukocyte Esterase Neg [place]/uL (Negative) 04/12/18 22:17 Urine WBC (Auto) 1 /hpf (0-5) 04/12/18 22:17 Urine RBC (Auto) 10 /hpf (0-3) H 04/12/18 22:17 Blood Type O POSITIVE 04/12/18 17:33 Antibody Screen Negative 04/12/18 17:33 - Hospital Course Hospital Course: HPI (As per admission): Patient is a 37 year old female with pmhx of Mcintosh's Palsy who presents to the ED with complaints of peripheral vision loss and right sided headache. Pt reports acute peripheral vision loss, greater on right but unsure if bilateral, while patient was working this afternoon at computer. Pt reports she was unable to see numbers to the side, and had to turn her head to do so. She reports she was on the phone at time of onset, and a coworker noted her words did not make sense. Pt then began to experience a severe right sided retro-orbital headache 10/10. Pt then went to eat, but symptoms persisted. Other coworkers noted her to be "normal", with no speech, balance, ambulating deficit. 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 Pt reports history of tension type headaches, lesser in severity. Pt denies weakness, loss of sensation, dizziness, chest pain, SOB, nausea, difficulty ambulating during event. Hospital Course: The patient was admitted with the consideration to R/O CVA due to presenting symptoms of headache and peripheral vision loss. Upon admission, patient was asymptomatic and on DAY 1 of admission patient was completely asymptomatic with no acute issues or complaints. Neurology, Dr. Lozano was consulted, who made appropriate recommendation for imaging work-up. Patient was discharge on day 1 of admission upon negative imaging and resolved symptoms Pertinent imaging: HEAD CT: Trace left frontal soft tissue swelling. No calvarial fracture. No acute intracranial pathology or hemorrhage. Brain MRI:The left cavernous carotid artery flow-void is not visualized is not visualized.. Please refer to prior CTA of the brain 04/12/2018 and corresponding report for additional details. No acute intracranial hemorrhage. Head/Neck CTA: The left internal carotid artery is not visualized from its origin ( complete occlusion of the left internal carotid artery ). Small size right internal carotid artery terminus.Reconstitution of small size left middle cerebral artery from relatively prominent size left posterior communicated artery. The left A1 is not visualized. The M1 and M2 segments of the right middle cerebral arteries are small in size. This is a brief summary of event. For a complete course, please refer to medical records Discharge Exam - Head Exam Head Exam: ATRAUMATIC, NORMAL INSPECTION, NORMOCEPHALIC - Eye Exam Eye Exam: EOMI, Normal appearance Pupil Exam: NORMAL ACCOMODATION, PERRL - ENT Exam ENT Exam: Mucous Membranes Moist - Respiratory Exam Respiratory Exam: Clear to PA & Lateral, NORMAL BREATHING PATTERN. absent: Prolonged Expiratory Phase, Rales, Rhonchi, Wheezes, Respiratory Distress - Cardiovascular Exam Cardiovascular Exam: REGULAR RHYTHM, +S1, +S2. absent: Tachycardia, Diastolic murmur, Irregular Rhythm, Systolic Murmur - GI/Abdominal Exam GI & Abdominal Exam: Normal Bowel Sounds, Soft. absent: Diminished Bowel Sounds, Distended, Firm, Guarding, Hernia, Tenderness - Extremities Exam Extremities exam: full ROM, normal inspection - Back Exam Back exam: absent: CVA tenderness (L), CVA tenderness (R) - Neurological Exam Neurological exam: Alert, CN II-XII Intact, Normal Gait, Oriented x3, Reflexes Normal - Psychiatric Exam Psychiatric exam: Normal Affect - Skin Skin Exam: Normal Color Discharge Plan - Discharge Medications Prescriptions: Aspirin 325 mg PO DAILY #60 tab - Follow Up Plan Condition: GOOD Disposition: HOME/ ROUTINE Additional Instructions: The following instructions were explained to the patient and copy will need to provided to patient upon discharge: 1). You were provided with Neurologist Dr. Ana Laura Lozano's office information by her and instructed to call her office this Sunday for an appointment to take place in 1 month time. 2). You were provided with a 2 month prescription for Asprin 325 mg which you should take 1x/day at 8 AM. 3). Please take care and be well. Bruno Lewis D.O. Referrals: Rina Lozano MD [Staff Provider] -
== END 2018-04-13 16:02 | disposition home or self-care (01) ==
LOC: C.ER 17:04 → C.9E 19:37 → C.6T 22:02
PROVIDERS: ADMIT Internal Medicine; ATTEND Internal Medicine
DX: R51 Headache (principal); H53.8 Other visual disturbances; H53.121 Transient visual loss, right eye; Q28.1 Other malformations of precerebral vessels; Z86.69 Personal history of other diseases of the nervous system and sense organs; Z79.82 Long term (current) use of aspirin
CPT/HCPCS: 36415; 70450; 70496; 70498; 70551; 80053; 80061; 81001; 82948; 83036; 83735; 84100; 84443; 84484; 85025; 85610; 85730; 86850; 86900; 99285; G0378; J1650; Q9967

== ENCOUNTER 2018-04-24 12:25 | Outpatient (CLI) | payer OTHER | END 2018-04-24 12:26 | disposition home or self-care (01) | LOC: C.LAB 12:25 | DX: G45.9 Transient cerebral ischemic attack, unspecified (principal); I63.9 Cerebral infarction, unspecified ==

== ENCOUNTER 2018-05-03 15:13 | Outpatient (CLI) | payer OTHER | END 2018-05-03 15:14 | disposition home or self-care (01) | LOC: C.LAB 15:13 ==